=== PATIENT | male | born 1985 | race Caucasian/White ===

== ENCOUNTER 2018-11-06 15:49 | Emergency (ER) | payer SELFPAY ==
[2018-11-06 16:31] VITALS: BP 143/87
--- NOTE | 2018-11-06 16:31 | Event Note ---
ED Screening Note ED Screening Note: CP MID CHEST "BURNING" NO CIG ETOH NO DRUGS PMH DM HPLD RX DM MED MOM AND DAD A/W This initial assessment/diagnostic orders/clinical plan/treatment(s) is/are subject to change based on patients health status, clinical progression and re- assessment by fellow clinical providers in the ED. Further treatment and workup at subsequent clinical providers discretion. Patient/guardian urged not to elope from the ED as their condition may be serious if not clinically assessed and managed. Initial orders include: [address] ACS VS GI
[2018-11-06 17:04] LABS: Hematocrit 41.6 % (35.5-45.6); Hemoglobin 13.7 gm/dl (11.8-15.2); Mean Corpuscular HGB Conc 33 % (32-34); Mean Corpuscular Volume 90 fl (84-94); Platelet Count 182 K/mm3 (140-440); Red Blood Count 4.64 M/mm3 (3.65-5.03); Red Cell Distribution Width 13.5 % (13.2-15.2)
[2018-11-06 17:27] LABS: BUN/Creatinine Ratio 15; Blood Urea Nitrogen 15 mg/dL (9-20); Calcium 9.4 mg/dL (8.4-10.2); Hemolysis Index 3
[2018-11-06] MEDS ORDERED: BENTYL PO ONE (17:32)
[2018-11-06] MEDS ORDERED: PEPCID PO ONE (17:32)
[2018-11-06] MEDS ORDERED: LIDOCAINE VISCOUS 2% PO ONE (17:32)
[2018-11-06] MEDS ORDERED: ALUM-MAG HYDROX-SIMETH 200-200-20MG/5ML PO ONE (17:32)
--- NOTE | 2018-11-06 17:41 | XRay Report ---
CHEST 2 VIEWS INDICATION / CLINICAL INFORMATION: CHEST PAIN. COMPARISON: None available. FINDINGS: SUPPORT DEVICES: None. HEART / MEDIASTINUM: No significant abnormality. LUNGS / PLEURA: No significant pulmonary or pleural abnormality. .No pneumothorax. ADDITIONAL FINDINGS: No significant additional findings. IMPRESSION: 1. No acute findings. Signer Name: Med Kang MD Signed: 11/06/2018 5:36 PM Workstation Name: [id number]
--- NOTE | 2018-11-06 18:08 | Emergency Department Report ---
ED Chest Pain HPI - General Chief Complaint: Chest Pain Stated Complaint: CHEST PAIN 1WK Time Seen by Provider: 11/06/18 16:29 Source: patient Mode of arrival: Ambulatory Limitations: Language Barrier - History of Present Illness Initial Comments: 33-year-old male comes in for right-sided chest pain for one week. Patient proceeded feels great he has no pain at this moment. Patient reports that the pain is intermittent feels like it tobin. Patient reports a taken ibuprofen is helping with his pain but will come back. Patient reports that he had this before about 8 months ago and then 2 years prior. Patient does have a primary care provider Dr. Brewer. Patient reports he was recently diagnosed with diabetes. Onset/Timin -: week(s) Onset: during rest Pain Location: right chest Pain Radiation: none Quality: pressure, other (Burning) Consistency: intermittent Improves With: medication-other (ibuprofen) Aspirin use within the Past 7 Days: (0) No - Related Data Allergies Allergy/AdvReac Type Severity Reaction Status Date / Time No Known Allergies Allergy Unverified 11/06/18 15:51 Heart Score - HEART Score History: Slightly suspicious EKG: Normal Age: < 45 Risk factors: 1-2 risk factors Troponin: < normal limit HEART Score: 1 ED Review of Systems ROS: Stated complaint: CHEST PAIN 1WK Other details as noted in HPI Comment: All other systems reviewed and negative Cardiovascular: chest pain ED Past Medical Hx - Past Medical History Hx Diabetes: Yes - Surgical History Past Surgical History?: No - Social History Smoking Status: Never Smoker Substance Use Type: None ED Physical Exam - General Limitations: Language Barrier General appearance: alert, in no apparent distress - Head Head exam: Present: atraumatic, normocephalic - Eye Eye exam: Present: normal appearance - ENT ENT exam: Present: mucous membranes moist - Neck Neck exam: Present: normal inspection - Respiratory Respiratory exam: Present: normal lung sounds bilaterally. Absent: respiratory distress - Cardiovascular Cardiovascular Exam: Present: regular rate, normal rhythm. Absent: systolic murmur, diastolic murmur, rubs, gallop - GI/Abdominal GI/Abdominal exam: Present: soft, normal bowel sounds - Rectal Rectal exam: Present: deferred - Extremities Exam Extremities exam: Present: normal inspection - Back Exam Back exam: Present: normal inspection - Neurological Exam Neurological exam: Present: alert, oriented X3 - Psychiatric Psychiatric exam: Present: normal affect, normal mood - Skin Skin exam: Present: warm, dry, intact, normal color. Absent: rash ED Course Vital Signs 11/06/18 16:29 Temperature 98.5 F Pulse Rate 85 Respiratory 16 Rate Blood Pressure 143/87 O2 Sat by Pulse 97 Oximetry LEVI score - Levi Score Age > 65: (0) No Aspirin use within the Past 7 Days: (0) No 3 or more CAD Risk Factors: (0) No 2 or more Angina events in past 24 hrs: (0) No Known CAD with more than 50% Stenosis: (0) No Elevated Cardiac Markers: (0) No ST Deviation Greater than 0.5mm: (0) No LEVI Score: 0 ED Medical Decision Making - Lab Data Result diagrams: 11/06/18 16:36 11/06/18 16:36 Lab Results 11/06/18 11/06/18 Range/Units 16:36 16:36 WBC 4.3 L (4.5-11.0) K/mm3 RBC 4.64 (3.65-5.03) M/mm3 Hgb 13.7 (11.8-15.2) gm/dl Hct 41.6 (35.5-45.6) % MCV 90 (84-94) fl MCH 30 (28-32) pg MCHC 33 (32-34) % RDW 13.5 (13.2-15.2) % Plt Count 182 (140-440) K/mm3 Sodium 142 (137-145) mmol/L Potassium 4.0 (3.6-5.0) mmol/L Chloride 102.8 (98-107) mmol/L Carbon Dioxide 28 (22-30) mmol/L Anion Gap 15 mmol/L BUN 15 (9-20) mg/dL Creatinine 1.0 (0.8-1.5) mg/dL Estimated GFR > 60 ml/min BUN/Creatinine Ratio 15 % Glucose 88 (75-100) mg/dL Calcium 9.4 (8.4-10.2) mg/dL Troponin T < 0.010 (0.00-0.029) ng/mL - EKG Data Rate: normal - Radiology Data Radiology results: report reviewed Patient: JUSTUS MONGE MR#: [id number] : 1985 Acct:[id number] Age/Sex: 33 / M ADM Date: 11/06/18 Loc: ED Attending Dr: Ordering Physician: NAVEEN MAHARAJ Date of Service: 11/06/18 Procedure(s): XR chest routine 2V Accession Number(s): [id number] cc: NAVEEN MAHARAJ Fluoro Time In Minutes: CHEST 2 VIEWS INDICATION / CLINICAL INFORMATION: CHEST PAIN. COMPARISON: None available. FINDINGS: SUPPORT DEVICES: None. HEART / MEDIASTINUM: No significant abnormality. LUNGS / PLEURA: No significant pulmonary or pleural abnormality. .No pneumothorax. ADDITIONAL FINDINGS: No significant additional findings. IMPRESSION: 1. No acute findings. Signer Name: Med Kang MD Signed: 11/06/2018 5:36 PM Workstation Name: [id number] Transcribed By: Dictated By: Med Kang MD Electronically Authenticated By: Med Kang MD Signed Date/Time: 11/06/181735 DD/ 35 TD/TT: - Medical Decision Making 33-year-old male comes in for right-sided chest pain for one week. Patient proceeded feels great he has no pain at this moment. Patient reports that the pain is intermittent feels like it tobin. Patient reports a taken ibuprofen is helping with his pain but will come back. Patient reports that he had this before about 8 months ago and then 2 years prior. Patient does have a primary care provider Dr. Brewer. Patient reports he was recently diagnosed with diabetes. Chest x-ray negative, EKG shows normal sinus rhythm, lab work or stable no elevation of troponins. Critical care attestation.: If time is entered above; I have spent that time in minutes in the direct care of this critically ill patient, excluding procedure time. ED Disposition Clinical Impression: Atypical chest pain Disposition: DC-01 TO HOME OR SELFCARE Is pt being admited?: No Does the pt Need Aspirin: No Condition: Stable Instructions: Chest Pain (ED) Additional Instructions: All studies and negative for any acute findings. I recommended 3 to follow up with her primary care provider as well as I refer you to the left eye heart which is a shank pinner for you to follow up. Todos los estudios y negativos para cualquier hallazgo john. Le recomend a 3 que hiciera un seguimiento con archibald proveedor de atencin primaria, as huy tambin lo remito al corazn del quin lisha, que es un cardilogo para que usted mary un seguimiento. Referrals: PRIMARY CARE, [Primary Care Provider] - 3-5 Days Your,Provider [Other] - 3-5 Days [facility] [Provider Group] - 3-5 Days Print Language: COMORAN
[2018-11-06] MEDS ORDERED: BENTYL ONE (18:31)
== END 2018-11-06 18:50 | disposition home or self-care (01) ==
LOC: ED 15:49
DX: R07.89 Other chest pain (principal); E11.9 Type 2 diabetes mellitus without complications
CPT/HCPCS: 36415; 71046; 80048; 84484; 85027; 93005; 93010

== ENCOUNTER 2019-05-21 09:10 | Outpatient (CLI) | payer BC ==
[2019-05-21 09:51] LABS: Chol/HDL Ratio 3.26 %
== END 2019-05-21 09:11 | disposition home or self-care (01) ==
LOC: LAB 09:10
PROVIDERS: ATTEND Internal Medicine
DX: E11.65 Type 2 diabetes mellitus with hyperglycemia (principal); E78.5 Hyperlipidemia, unspecified
CPT/HCPCS: 36415; 80061; 83036

== ENCOUNTER 2020-02-21 10:29 | Outpatient (CLI) | payer BC | END 2020-02-21 10:30 | disposition home or self-care (01) | LOC: LAB 10:29 | PROVIDERS: ATTEND Internal Medicine | DX: E11.9 Type 2 diabetes mellitus without complications (principal) | CPT/HCPCS: 36415; 83036 ==

== ENCOUNTER 2020-06-16 09:17 | Outpatient (CLI) | payer BC ==
[2020-06-16 09:58] LABS: Alanine Aminotransferase 39 units/L (7-56); Albumin 4.2 g/dL (3.9-5); Blood Urea Nitrogen 11 mg/dL (9-20); Calcium 9.1 mg/dL (8.4-10.2); Chol/HDL Ratio 4.18 %; HDL Cholesterol 50 mg/dL (40-59); Hemolysis Index 8; LDL Cholesterol,Direct 147 mg/dL (50-130)
[2020-06-16 10:01] LABS: BUN/Creatinine Ratio 16
== END 2020-06-16 09:18 | disposition home or self-care (01) ==
LOC: LAB 09:17
PROVIDERS: ATTEND Internal Medicine
DX: E11.9 Type 2 diabetes mellitus without complications (principal); E78.5 Hyperlipidemia, unspecified
CPT/HCPCS: 36415; 80053; 80061

== ENCOUNTER 2020-06-30 15:22 | Outpatient (CLI) | payer BC ==
--- NOTE | 2020-06-30 16:41 | XRay Report ---
BILATERAL ELBOW 6 VIEW(S) INDICATION / CLINICAL INFORMATION: BILATERAL ELBOW PAIN COMPARISON: None available. FINDINGS: BONES / JOINT(S): No acute fracture or subluxation. No significant arthritis. SOFT TISSUES: No significant abnormality. ADDITIONAL FINDINGS: None. IMPRESSION: No acute osseous abnormality of either elbow. Signer Name: Jeff Molina MD Signed: 06/30/2020 4:36 PM Workstation Name: [id number]
== END 2020-06-30 15:23 | disposition home or self-care (01) ==
LOC: XRAY 15:22
PROVIDERS: ATTEND Internal Medicine
DX: M25.521 Pain in right elbow (principal); M25.522 Pain in left elbow

== ENCOUNTER 2020-11-02 09:39 | Outpatient (CLI) | payer BC ==
[2020-11-02 10:35] LABS: Chol/HDL Ratio 2.8 %
== END 2020-11-02 09:40 | disposition home or self-care (01) ==
LOC: LAB 09:39
PROVIDERS: ATTEND Internal Medicine
DX: E11.65 Type 2 diabetes mellitus with hyperglycemia (principal); E78.5 Hyperlipidemia, unspecified
CPT/HCPCS: 36415; 80061; 83036